=== PATIENT | female | born 1985 | race Caucasian/White ===

== ENCOUNTER 2018-12-19 21:52 | Emergency (ER) | payer MEDICARE, MEDICAID ==
[2018-12-19] MEDS ORDERED: Ibuprofen 800 MG TAB ONE (22:42)
--- NOTE | 2018-12-19 22:47 | RAD ---
RADIOGRAPH RIGHT FOOT 3 VIEWS: 12/19/18 at 10:35 p.m. HISTORY: 33-year-old female with pain and swelling to the right foot. FINDINGS: There is diffuse soft tissue edema. No osteolytic, osteoblastic, or permeative lesion. No periostitis , fracture, or dislocation. No degenerative changes of joints. No radiopaque foreign body or soft tis maxwell calcification. IMPRESSION: 1. Diffuse soft tissue edema. 2. No osseous abnormality. POS: CET
== END 2018-12-19 22:45 | disposition home or self-care (01) ==
LOC: ERS 21:52
DX: M79.671 Pain in right foot (principal); M79.89 Other specified soft tissue disorders; K21.9 Gastro-esophageal reflux disease without esophagitis; F41.9 Anxiety disorder, unspecified; Z79.899 Other long term (current) drug therapy
CPT/HCPCS: 99283

== ENCOUNTER 2024-05-01 19:55 | Emergency (ER) | payer MEDICARE, MEDICAID ==
[2024-05-01 20:37] LABS: Bacteria/HPF None Seen HPF (None Seen); Bilirubin Negative (Negative); Blood, Urine Negative (Negative); CAUTI Indications for Culture Pelvic or flank pain; Clarity Clear (Clear); Glucose, Urine (Dipstick) Normal (Negative); Ketone, Urine Negative (Negative); Leukocyte Negative Leu/uL (Negative); Nitrite Negative (Negative); Protein, Urine (Dipstick) Negative (Neg-Trace); RBC/HPF 0-3 HPF (0-3); Squamous Epithelial 0-3 HPF (0-3); Urobilinogen Normal mg/dL (Less than 2); WBC/HPF 0-3 HPF (0-3)
[2024-05-01 20:38] LABS: #Basophils 0.05 10x3/uL (0.0-0.2); %Basophils 0.6 % (0.0-1.0); %Eosinophils 2.7 % (0.0-10.0); %Lymphocytes 28.8 % (21.0-51.0); %Monocytes 3.9 % (0.0-10.0); %Neutrophils 63.8 % (42.0-75.0); Hematocrit 40.9 % (36.0-47.0); Hemoglobin 13.9 g/dL (12.0-16.0); Mean Corpuscular Hemoglobin 31.5 pg (27.0-31.0); Mean Corpuscular Volume 92.7 fL (78.0-98.0); Mean Platelet Volume 10.4 fL (7.4-10.4); Platelet Count 242 10x3/uL (130-400); RBC Distribution Width 12.5 % (11.5-14.5); Red Blood Cell (RBC) Count 4.41 mill/uL (4.20-5.40)
[2024-05-01 20:39] LABS: Urine Culture Reflex No No
[2024-05-01 20:48] LABS: BHCG - Serum Negative (NEGATIVE); Pregs Control Background? CLEAR/WHITE (CLR/WHITE); Pregs Control Bar Appear? YES (CONTROL BAR)
[2024-05-01 20:53] LABS: ALT (SGPT) 9 U/L (8-55); AST (SGOT) 14 U/L (5-34); Albumin 3.6 g/dL (3.5-5.0); Alkaline Phosphatase 137 U/L (40-110); Anion Gap 13 mmol/L (10-20); BUN (Urea Nitrogen) 12 mg/dL (7.0-18.7); Bilirubin, Total 0.8 mg/dL (0.2-1.2); Calc. Creatinine Clearance 0 mL/min (70-130); Carbon Dioxide 23 mmol/L (22-29); Chloride 109 mmol/L (98-107); Estimated GFR 78; Globulin 4.2 g/dL (2.4-3.5); Glucose 83 mg/dL (70-105); Lipase 17 U/L (8-78); Potassium 3.3 mmol/L (3.5-5.1); Protein, Total 7.8 g/dL (6.0-8.3); Sodium 142 mmol/L (136-145)
== END 2024-05-01 20:48 | disposition left against medical advice (07) ==
LOC: ERS 19:55
DX: Z53.21 Procedure and treatment not carried out due to patient leaving prior to being seen by health care provider (principal)
CPT/HCPCS: 36415; 80053; 81001; 83690; 84703; 85025